=== PATIENT | male | born 2000 | race American Indian/Alaskan Native ===

== ENCOUNTER 2025-08-06 17:16 | Emergency (ER) | payer BC ==
[2025-08-06] MEDS ORDERED: Orphenadrine Citrate 100 MG ER.TAB ONE (19:34)
[2025-08-06] MEDS ORDERED: HYDROcodone/Acetaminophen 5/325 mg Tablet ONE (19:34)
[2025-08-06] MEDS ORDERED: Boostrix 0.5 ML (Tdap) VIAL (>/=7 yrs of age) ONE (19:35)
== END 2025-08-06 20:15 | disposition home or self-care (01) ==
LOC: ERS 17:16
DX: S60.221A Contusion of right hand, initial encounter (principal); S80.11XA Contusion of right lower leg, initial encounter; S00.01XA Abrasion of scalp, initial encounter; Z23 Encounter for immunization; V23.49XA Other motorcycle driver injured in collision with car, pick-up truck or van in traffic accident, initial encounter; Y92.410 Unspecified street and highway as the place of occurrence of the external cause
CPT/HCPCS: 70450; 72125; 74176; 90471; 90715